=== PATIENT | male | born 1970 | race Caucasian/White ===

== ENCOUNTER → 2018-05-20 | Outpatient (CLI) | payer OTHER ==
[~2018-05-20] MED LIST: LORA10CA3 PO
[2018-05-20 08:26] LABS: PLATELET COUNT, AUTOMATED 216 K/uL (150-450)
[2018-05-20 08:35] LABS: LDL CHOLESTEROL 114 mg/dl
== END ==
LOC: LAB 07:56
PROVIDERS: ATTEND Internal Medicine
DX: N52.9 Male erectile dysfunction, unspecified (principal); R53.83 Other fatigue; R73.9 Hyperglycemia, unspecified; E78.5 Hyperlipidemia, unspecified
CPT/HCPCS: 36415; 81001; 82040; 82247; 82310; 82374; 82435; 82465; 82565; 82947; 83036; 83718; 84075; 84132; 84155; 84295; 84402; 84403; 84443; 84450; 84460; 84478; 84520; 84550; 85025

== ENCOUNTER → 2018-05-21 | Outpatient (CLI) | payer OTHER ==
[~2018-05-21] MED LIST changes: +AZIT-17 PO; +CODE473L3 PO
== END ==
LOC: RESP 02:09
PROVIDERS: ATTEND Internal Medicine
DX: G47.33 Obstructive sleep apnea (adult) (pediatric) (principal)

== ENCOUNTER → 2018-05-23 | Outpatient (CLI) | payer OTHER ==
--- NOTE | 2018-05-23 11:21 | RADIOLOGY IMAGING REPORT ---
FACILITY: [facility] PATIENT NAME: Celestino Gomez : 1970 MR: [id number] V: [id number] EXAM DATE: ORDERING PHYSICIAN: ADRIAN BINGAHM TECHNOLOGIST: Location: [facility] [place] Patient: Celestino Gomez : 1970 Visit/Account:[id number] Date of Sevice: 05/23/2018 Exam type: CHEST PA AND LAT History: cough Comparison: August 31, 2009. Findings: The lungs are free of acute effusions, infiltrates or edema. No evidence of a pneumothorax or pneumo mediastinum. The cardiac silhouette is normal in size. Trachea is in midline. IMPRESSION: 1. No acute cardiopulmonary process is seen Report Dictated By: Jenn Rizvi MD at 05/23/2018 10:59 AM Report E-Signed By: Jenn Rizvi MD at 05/23/2018 11:17 AM WSN:[id number]
== END ==
LOC: RAD 10:00
PROVIDERS: ATTEND Internal Medicine
DX: J40 Bronchitis, not specified as acute or chronic (principal)
CPT/HCPCS: 71046

== ENCOUNTER → 2018-09-13 | Outpatient (CLI) | payer OTHER ==
[~2018-09-13] MED LIST changes: +ALBU8.5H IH; +BENZ100C4 PO; +BIPAP; +METH4TAB66 PO
== END ==
LOC: RESP 19:53
PROVIDERS: ATTEND Internal Medicine
DX: G47.33 Obstructive sleep apnea (adult) (pediatric) (principal); G47.36 Sleep related hypoventilation in conditions classified elsewhere